=== PATIENT | male | born 1995 | race Caucasian/White ===

== ENCOUNTER 2020-05-10 23:00 | Emergency (ER) | payer OTHER, MEDICAID ==
[2020-05-11 00:36] LABS: ANION GAP 14.4 mEq/L (7-13); CHLORIDE,CL 100 mmol/L (98-107); SODIUM,NA 138 mmol/L (136-145)
--- NOTE | 2020-05-11 00:59 | CR ---
PROCEDURE INFORMATION: Exam: XR Right Forearm Exam date and time: 05/10/2020 11:57 PM Age: 25 years old Clinical indication: Other: Fall; Additional info: Head injury, tried to catch self TECHNIQUE: Imaging protocol: XR Right forearm. Views: 2 views. COMPARISON: No relevant prior studies available. FINDINGS: Bones/joints: There is a slight cortical step-off along the radial neck on the AP view. The bones are otherwise normal in appearance. The wrist and elbow joints are normally articulated. There appears to be an elbow joint effusion. Soft tissues: The soft tissues are within normal limits. IMPRESSION: Possible subtle fracture of the radial neck. Recommend clinical correlation and dedicated elbow radiographs if there is clinical concern for a radial neck fracture. The exam is otherwise normal.
--- NOTE | 2020-05-11 01:00 | CR ---
PROCEDURE INFORMATION: Exam: XR Left Forearm Exam date and time: 05/10/2020 11:58 PM Age: 25 years old Clinical indication: Other: Fall; Additional info: Head injury, tried to catch self TECHNIQUE: Imaging protocol: XR Left forearm. Views: 2 views. COMPARISON: No relevant prior studies available. FINDINGS: Bones/joints: The bones are intact and normal in appearance. No acute fracture is identified. The wrist and elbow joints appear normal. Soft tissues: The soft tissues are within normal limits. IMPRESSION: No acute osseous injury identified.
--- NOTE | 2020-05-11 01:03 | CT ---
PROCEDURE INFORMATION: Exam: CT Head Without Contrast Exam date and time: 05/10/2020 11:59 PM Age: 25 years old Clinical indication: Other: Fall; Additional info: Head injury, tried to catch self TECHNIQUE: Imaging protocol: Computed tomography of the head without contrast. Radiation optimization: All CT scans at this facility use at least one of these dose optimization techniques: automated exposure control; mA and/or kV adjustment per patient size (includes targeted exams where dose is matched to clinical indication); or iterative reconstruction. COMPARISON: No relevant prior studies available. FINDINGS: Brain: The brain is normal in appearance. There is no intracranial hemorrhage. There is no acute edema, mass effect or shift of the normally midline structures. The rice-white matter differentiation is preserved. There are no extra-axial fluid collections. Cerebral ventricles: The ventricles and sulci are age appropriate. Bones/joints: The calvarium is intact. Paranasal sinuses: The paranasal sinuses are normally aerated. Mastoid air cells: The mastoid air cells and middle ear cavities are normally aerated. Soft tissues: No soft tissue hematoma is identified. IMPRESSION: Normal exam.
--- NOTE | 2020-05-11 01:06 | CT ---
PROCEDURE INFORMATION: Exam: CT Cervical Spine Without Contrast Exam date and time: 05/11/2020 12:44 AM Age: 25 years old Clinical indication: Other: Fall; Additional info: Head injury, tried to catch self TECHNIQUE: Imaging protocol: Computed tomography images of the cervical spine without contrast. Radiation optimization: All CT scans at this facility use at least one of these dose optimization techniques: automated exposure control; mA and/or kV adjustment per patient size (includes targeted exams where dose is matched to clinical indication); or iterative reconstruction. COMPARISON: No relevant prior studies available. FINDINGS: Bones/joints: There is normal alignment throughout the visualized portion of the spine. There is mild reversal of the normal cervical lordosis. There is preservation of the vertebral body heights. There is no evidence of acute or healing fracture. The ring of C1 is intact. The dens is intact. The facet joints are normally aligned and articulated. The base of the skull is intact. The temporomandibular joints are normally articulated. Discs/Spinal canal/Neural foramina: The atlantoaxial articulation is preserved. The disc heights are well preserved. There are small anterior osteophytes at C4-C5 and C5-C6. The central canal caliber is preserved. There is no neural foraminal stenosis. Soft tissues: No large soft tissue hematoma is identified. Lungs: The visualized lung apices are clear. IMPRESSION: 1. No acute fracture or malalignment identified. 2. Reversal of the normal cervical lordosis may be positional or related to muscle spasm.
--- NOTE | 2020-05-11 01:13 | EDM.PDOC ---
ED HPI GENERAL MEDICAL PROBLEM - General Chief Complaint: Head Injury Stated Complaint: FELL AND HURT HAND/HIT HEAD Time Seen by Provider: 05/10/20 23:30 Source of Information: Reports: Patient, RN, RN Notes Reviewed History Limitations: Reports: No Limitations - History of Present Illness INITIAL COMMENTS - FREE TEXT/NARRATIVE: Pt presents to the ER with c/o bilateral forearm pain, bilateral elbow pain, and head pain. Patient states he was working at the [employer] and was being passed money through the drive up window. Patient states the change was dropped and he was crawling out the drive thru window to get the money. States his hand slipped and he fell. Patient states he held his hands out to catch himself, but also hit his head on the ground. Patient states he then got up, walked back into the store, and once he got to the till, he blacked out. Patient states he does not think he was out for more than 10-15 seconds. Patient rates the pain 5/10. Denies any numbness or tingling anywhere. Onset: Today, Sudden Right Lower Arm Pain Score (Numeric/FACES): 7 - Related Data Allergies Allergy/AdvReac Type Severity Reaction Status Date / Time No Known Allergies Allergy Verified 05/10/20 23:10 Home Meds: Home Meds . [No Known Home Meds] 05/10/20 [History] Past Medical History Psychiatric History: Reports: Anxiety - Infectious Disease History Infectious Disease History: Reports: Influenza Social & Family History - Tobacco Use Tobacco Use Status *Q: Current Every Day Tobacco User Years of Tobacco use: 1 Packs/Tins Daily: 0.4 Second Hand Smoke Exposure: Yes - Recreational Drug Use Recreational Drug Use: No ED ROS GENERAL - Review of Systems Review Of Systems: Comprehensive ROS is negative, except as noted in HPI. ED EXAM, HEAD INJURY - Physical Exam Exam: See Below Exam Limited By: No Limitations General Appearance: Alert, WD/WN, Mild Distress Head: Atraumatic, Normocephalic Nexus Criteria: No: Posterior, Midline Cervical Tenderness, Evidence of Intoxication, Altered Level of Consciousness, Focal Neurological Deficit, Painful Distraction Injuries Eyes: Bilateral Eye: EOMI, Normal Inspection, PERRL (4, brisk) Ears: Normal External Exam, Hearing Grossly Normal Nose: Normal Inspection, Normal Mucousa, No Blood Throat/Mouth: Normal Inspection, Normal Lips, Normal Teeth, Normal Gums, Normal Oropharynx, Normal Voice, No Airway Compromise Neck: Non-Tender, Full Range of Motion, Normal Alignment, Normal Inspection Respiratory: No Respiratory Distress, Lungs Clear, Normal Breath Sounds, No Accessory Muscle Use, Chest Non-Tender Cardiovascular: Normal Peripheral Pulses, Regular Rate, Rhythm, No Edema, No Gallop, No JVD, No Murmur, No Rub GI/Abdominal Exam: Normal Bowel Sounds, Soft, Non-Tender, No Organomegaly, No Distention, No Abnormal Bruit, No Mass, Pelvis Stable (Male) Exam: Deferred Rectal (Males) Exam: Deferred Back Exam: Full Range of Motion, Normal Inspection, NT Extremities: Limited Range of Motion (elbows bilaterally, swelling to the right forearm) Neurologic: No Motor/Sensory Deficits, Alert, Normal Mood/Affect, Oriented x 3 Skin: Normal Color, Warm/Dry - [place] Coma Score Best Eye Response ([place]): (4) Open Spontaneously Best Verbal Response ([place]): (5) Oriented Best Motor Response ([place]): (6) Obeys Commands [place] Total: 15 Course - Vital Signs Last Recorded V/S: Last Vital Signs Temp 99 F 05/10/20 23:03 Pulse 97 05/10/20 23:03 Resp 18 05/10/20 23:03 BP 143/77 H 05/10/20 23:03 Pulse Ox 100 05/10/20 23:03 - Orders/Labs/Meds Labs: Laboratory Tests 05/10/20 05/10/20 Range/Units 23:55 23:55 WBC 10.3 H (5.0-10.0) 10^3/uL RBC 5.11 (4.6-6.2) 10^6/uL Hgb 15.5 (14.0-18.0) g/dL Hct 42.9 (40.0-54.0) % MCV 84.0 (80-100) fL MCH 30.3 (27.0-34.0) pg MCHC 36.1 H (33.0-35.0) g/dL Plt Count 243 (150-450) 10^3/uL Neut % (Auto) 67.4 (42.2-75.2) % Lymph % (Auto) 23.3 (20.5-50.1) % [place] % (Auto) 7.7 (2-8) % Eos % (Auto) 1.4 (1.0-3.0) % Baso % (Auto) 0.2 (0.0-1.0) % Sodium 138 (136-145) mmol/L Potassium 3.4 L (3.5-5.1) mmol/L Chloride 100 (98-107) mmol/L Carbon Dioxide 27 (21-32) mmol/L Anion Gap 14.4 H (7-13) mEq/L BUN 11 (7-18) mg/dL Creatinine 0.90 (0.70-1.30) mg/dL Est Cr Clr Drug Dosing 140.11 mL/min Estimated GFR (MDRD) > 60 BUN/Creatinine Ratio 12.2 (No establ ref range) Glucose 100 H (74-99) mg/dL Calcium 8.7 (8.5-10.1) mg/dL Total Bilirubin 0.4 (0.2-1.0) mg/dL AST 21 (15-37) U/L ALT 31 (16-63) U/L Alkaline Phosphatase 72 (46-116) U/L Total Protein 7.4 (6.4-8.2) g/dL Albumin 4.2 (3.4-5.0) g/dL Globulin 3.2 Albumin/Globulin Ratio 1.3 Meds: Medications Discontinued Medications Generic Name Dose Route Start Last Admin Trade Name Freq PRN Reason Stop Dose Admin Ibuprofen 800 mg 05/11/20 01:59 05/11/20 02:42 Motrin PO 05/11/20 02:00 800 mg ONETIME ONE Administration - Radiology Interpretation Free Text/Narrative:: Head CT wo contrast: PROCEDURE INFORMATION: Exam: CT Head Without Contrast Exam date and time: 05/10/2020 11:59 PM Age: 25 years old Clinical indication: Other: Fall; Additional info: Head injury, tried to catch self TECHNIQUE: Imaging protocol: Computed tomography of the head without contrast. Radiation optimization: All CT scans at this facility use at least one of these dose optimization techniques: automated exposure control; mA and/or kV adjustment per patient size (includes targeted exams where dose is matched to clinical indication); or iterative reconstruction. COMPARISON: No relevant prior studies available. FINDINGS: Brain: The brain is normal in appearance. There is no intracranial hemorrhage. There is no acute edema, mass effect or shift of the normally midline structures. The rice-white matter differentiation is preserved. There are no extra-axial fluid collections. Cerebral ventricles: The ventricles and sulci are age appropriate. Bones/joints: The calvarium is intact. Paranasal sinuses: The paranasal sinuses are normally aerated. Mastoid air cells: The mastoid air cells and middle ear cavities are normally aerated. Soft tissues: No soft tissue hematoma is identified. IMPRESSION: Normal exam. Thank you for allowing us to participate in the care of your patient. Dictated and Authenticated by: Maureen Alejo MD 05/11/2020 1:03 AM Central Time ([place] & [place]) C Spine CT wo contrast: PROCEDURE INFORMATION: Exam: CT Cervical Spine Without Contrast Exam date and time: 05/11/2020 12:44 AM Age: 25 years old Clinical indication: Other: Fall; Additional info: Head injury, tried to catch self TECHNIQUE: Imaging protocol: Computed tomography images of the cervical spine without contrast. Radiation optimization: All CT scans at this facility use at least one of these dose optimization techniques: automated exposure control; mA and/or kV adjustment per patient size (includes targeted exams where dose is matched to clinical indication); or iterative reconstruction. COMPARISON: No relevant prior studies available. FINDINGS: Bones/joints: There is normal alignment throughout the visualized portion of the spine. There is mild reversal of the normal cervical lordosis. There is preservation of the vertebral body heights. There is no evidence of acute or healing fracture. The ring of C1 is intact. The dens is intact. The facet joints are normally aligned and articulated. The base of the skull is intact. The temp oromandibular joints are normally articulated. Discs/Spinal canal/Neural foramina: The atlantoaxial articulation is preserved. The disc heights are well preserved. There are small anterior osteophytes at C4-C5 and C5-C6. The central canal caliber is preserved. There is no neural foraminal stenosis. Soft tissues: No large soft tissue hematoma is identified. Lungs: The visualized lung apices are clear. IMPRESSION: 1. No acute fracture or malalignment identified. 2. Reversal of the normal cervical lordosis may be positional or related to muscle spasm. Thank you for allowing us to participate in the care of your patient. Dictated and Authenticated by: Maureen Alejo MD 05/11/2020 1:05 AM Central Time ([place] & [place]) Right forearm xray: PROCEDURE INFORMATION: Exam: XR Right Forearm Exam date and time: 05/10/2020 11:57 PM Age: 25 years old Clinical indication: Other: Fall; Additional info: Head injury, tried to catch self TECHNIQUE: Imaging protocol: XR Right forearm. Views: 2 views. COMPARISON: No relevant prior studies available. FINDINGS: Bones/joints: There is a slight cortical step-off along the radial neck on the AP view. The bones are otherwise normal in appearance. The wrist and elbow joints are normally articulated. There appears to be an elbow joint effusion. Soft tissues: The soft tissues are within normal limits. IMPRESSION: Possible subtle fracture of the radial neck. Recommend clinical correlation and dedicated elbow radiographs if there is clinical concern for a radial neck fracture. The exam is otherwise normal. Thank you for allowing us to participate in the care of your patient. Dictated and Authenticated by: Maureen Alejo MD 05/11/2020 12:59 AM Central Time ( & [place]) Left forearm xray: PROCEDURE INFORMATION: Exam: XR Left Forearm Exam date and time: 05/10/2020 11:58 PM Age: 25 years old Clinical indication: Other: Fall; Additional info: Head injury, tried to catch self TECHNIQUE: Imaging protocol: XR Left forearm. Views: 2 views. COMPARISON: No relevant prior studies available. FINDINGS: Bones/joints: The bones are intact and normal in appearance. No acute fracture is identified. The wrist and elbow joints appear normal. Soft tissues: The soft tissues are within normal limits. IMPRESSION: No acute osseous injury identified. Thank you for allowing us to participate in the care of your patient. Dictated and Authenticated by: Maureen Alejo MD 05/11/2020 1:00 AM Central Time ([place] & [place]) Right elbow xray: PROCEDURE INFORMATION: Exam: XR Right Elbow Exam date and time: 05/11/2020 1:13 AM Age: 25 years old Clinical indication: Other: Pain; Additional info: Fall TECHNIQUE: Imaging protocol: XR Right elbow. Views: 3 or more views. COMPARISON: CR Forearm 2V Rt 05/10/2020 11:57 PM FINDINGS: Bones/joints: The there is some elevation of the anterior fat pad seen within the right elbow joint. There is mild irregularity of the radial neck compatible with an acute radial neck fracture. Soft tissues: Normal. IMPRESSION: 1. Cortical irregularity the radial neck compatible with an acute radial neck fracture. 2. There is moderate elevation of the anterior fat pad. Thank you for allowing us to participate in the care of your patient. Dictated and Authenticated by: Ernesto Henderson MD 05/11/2020 1:23 AM Central Time ([place] & [place]) See rad report Departure - Departure Time of Disposition: 03:30 Disposition: Home, Self-Care 01 Condition: Good Clinical Impression: Fracture of radial neck, right, closed Qualifiers: Encounter type: initial encounter Fracture alignment: nondisplaced Qualified Code(s): S52.134A - Nondisplaced fracture of neck of right radius, initial encounter for closed fracture Concussion Qualifiers: Encounter type: initial encounter Loss of consciousness presence/duration: with LOC of 30 min or less Qualified Code(s): S06.0X1A - Concussion with loss of consciousness of 30 minutes or less, initial encounter - Discharge Information *PRESCRIPTION DRUG MONITORING PROGRAM REVIEWED*: No *COPY OF PRESCRIPTION DRUG MONITORING REPORT IN PATIENT ELISE: No Instructions: Concussion, Adult, [id number], Cast or Splint Care, Adult, [id number], Head Injury, Adult, [id number], Radial Head Fracture, [id number] Referrals: PCP,None [Primary Care Provider] - Forms: ED Department Discharge Additional Instructions: Wear splint until seen by Software Project Engineer Keep splint clean and dry May use Tylenol and/or Ibuprofen as directed for pain Call [facility] office tomorrow at [phone] to make an appoint ment to see Orthopedic Doctor Sepsis Event Note (ED) - Evaluation Sepsis Screening Result: No Definite Risk - Focused Exam Vital Signs: Vital Signs Temp Pulse Resp BP Pulse Ox 05/10/20 23:03 99 F 97 18 143/77 H 100
--- NOTE | 2020-05-11 01:23 | CR ---
PROCEDURE INFORMATION: Exam: XR Right Elbow Exam date and time: 05/11/2020 1:13 AM Age: 25 years old Clinical indication: Other: Pain; Additional info: Fall TECHNIQUE: Imaging protocol: XR Right elbow. Views: 3 or more views. COMPARISON: CR Forearm 2V Rt 05/10/2020 11:57 PM FINDINGS: Bones/joints: The there is some elevation of the anterior fat pad seen within the right elbow joint. There is mild irregularity of the radial neck compatible with an acute radial neck fracture. Soft tissues: Normal. IMPRESSION: 1. Cortical irregularity the radial neck compatible with an acute radial neck fracture. 2. There is moderate elevation of the anterior fat pad.
[2020-05-11] MEDS ORDERED: Ibuprofen 800 MG Tab PO ONE (01:59)
== END 2020-05-11 03:25 | disposition home or self-care (01) ==
LOC: DL.ED 23:00
DX: S06.0X1A Concussion with loss of consciousness of 30 minutes or less, initial encounter (principal); S52.134A Nondisplaced fracture of neck of right radius, initial encounter for closed fracture; M79.632 Pain in left forearm; F17.210 Nicotine dependence, cigarettes, uncomplicated; W01.0XXA Fall on same level from slipping, tripping and stumbling without subsequent striking against object, initial encounter
CPT/HCPCS: 29125; 36415; 70450; 72125; 73080; 73090; 80053; 85025; 99284; A9270